=== PATIENT | female | born 1935 | race Caucasian/White ===

== ENCOUNTER 2020-10-20 15:25 | Emergency (ER) | payer OTHER ==
[~2020-10-20] VITALS: Ht 154.9 cm; Wt 81.7 kg
[2020-10-20] MEDS ORDERED: NORVASC5 MG PO (15:45)
[2020-10-20] MEDS ORDERED: COZAAR 25 MG TA25 M1 PO (15:45)
[2020-10-20] MEDS ORDERED: MAGNESIUM-VIT1 EAC1 PO (15:46)
[2020-10-20] MEDS ORDERED: TRIAMTERENE/HCT1 CA1 PO (15:48)
[2020-10-20] MEDS ORDERED: CLARITIN10 MG PO (15:49)
[2020-10-20] MEDS ORDERED: ASA81BEC PO (15:49)
[2020-10-20] MEDS ORDERED: MUCINEX DM ER1 EACH PO (15:50)
[2020-10-20] MEDS ORDERED: MULTI VITAMIN1 EACH PO (15:50)
[2020-10-20] MEDS ORDERED: VITAMIN B122500 MC1 PO (15:50)
[2020-10-20 17:10] VITALS: BP 166/70
== END 2020-10-20 17:12 | disposition home or self-care (01) ==
LOC: M.ERS 15:25
DX: M54.2 Cervicalgia (principal); M25.561 Pain in right knee; M25.511 Pain in right shoulder; Z88.2 Allergy status to sulfonamides; V89.2XXA Person injured in unspecified motor-vehicle accident, traffic, initial encounter; Y93.89 Activity, other specified; Y92.89 Other specified places as the place of occurrence of the external cause; Y99.8 Other external cause status

== ENCOUNTER 2021-06-06 19:57 | Emergency (ER) | payer OTHER ==
[~2021-06-06] VITALS: Ht 157.5 cm; Wt 82.1 kg
--- NOTE | ~2021-06-06 | EMS ---
[facility] [address] [place] [address] EMS Patient Care Report Name: BILL LOVE Room: [facility]#: [id number] Admission: 06/06/21 Attend Phys: Discharge: Date of : 37 Report #: [id number] THIS REPORT FOR: //name// Report Transmitted: 06/06/2021 20:23 EMS Care Summary [facility] [place] Incident [id number] @ 06/06/2021 19:12 Incident Location [address] [place] [address] Patient BILL LOVE Female, 85 Years 1935 Patient Address [address] [place] [id number] Patient History Hypertension (HTN),,Alzheimer's,Other and unspecified hearing loss, Patient Allergies , Patient Medications Losartan, Lexapro, Amlodipine, Memantine, Aricept, Chief Complaint Fainting/Syncope Disposition Transported No Lights/[place]inner Dispatch Reason Unconscious/Fainting Transported To [facility] Narrative 320 DISPATCHED EMERGENT TO [facility] FOR ALOC. 320 ARRIVED ON SCENE WITHOUT INCIDENT. UPON ARRIVING ON SCENE, PT WAS FOUND NEAR THE PHARMACY SITTING IN A CHAIR. PT'S FAMILY REPORTS THEY DID NOT WITNESS HER FALL BUT WHEN THEY APPROACHED PT SHE WAS MINIMALLY RESPONSIVE AND HER EYES WERE ROLLED BACK. [facility] [address] [place] [address] EMS Patient Care Report Name: BILL LOVE Room: [facility]#: [id number] Admission: 06/06/21 Attend Phys: Discharge: Date of : 37 Report #: [id number] FAMILY REPORTS PT WAS VERY CONFUSED WHEN SHE FIRST CAME AROUND. PT IS CURRENTLY ALERT AND ORIENTED X4 AND STATES SHE FELT DIZZY THEN "WENT DOWN." PT DENIES THIS EVER HAPPENING BEFORE. PT STATES SHE IS CURRENTLY FINE AND HAS NO COMPLAINTS. PT'S FAMILY REQUESTS PT GOES TO GET CHECKED OUT SO SHE AGREED AND THEY DECIDED [facility]. PT STOOD AND PIVOTED AND SAT ON THE COT. PT WAS SECURED VIA SEATBELTS AND SIDERAILS. PT'S FAMILY REPORTS PT SOMETIMES HAS SHORT TERM MEMORY LOSS THAT IS NORMAL DUE TO HER DEMENTIA. PT WAS WHEELED TO THE AMBULANCE AND LOADED WITHOUT INCIDENT. ONCE IN THE AMBULANCE, TREATMENTS AND INTERVENTIONS WERE EXECUTED. PT STATED HER NECK WAS STARTING TO HURT. PT STATED IT HURT AT THE BASE OF HER HEAD AND RIGHT ABOVE HER SHOULDERS. PT STATED HER UPPER BACK WAS ALSO HURTING AT THE TOPS OF HER SHOULDERS. PT THEN REPORTED HER HEAD NOW HURTING IN THE BACK. NO TRAUMA FOUND TO HER HEAD. TRANSPORT BEGAN AT THIS TIME. WHILE ENROUTE, PT STATED HER RIGHT KNEE WAS ALSO HURTING. NO OBVIOUS TRAUMAS WERE FOUND. PT REMAINS ORIENTED WITH A GCS OF 15. PT'S VITALS WERE MONITORED ENROUTE TO THE HOSPITAL AND REMAINED STABLE. UPON ARRIVING AT THE HOSPITAL, PT STATED SHE WAS UNABLE TO SIGN THE TABLET DUE TO THE IV PLACEMENT. PT STATED SHE WAS UNABLE TO LIFT HER ARM DUE TO IT. EMS ATTEMPTED TO EXPLAIN THAT IT WAS A CATHETER IN HER ARM AND SHE SHOULDN'T HAVE ISSUES LIFTING HER ARM BUT SHE STILL SAID SHE COULDN'T. PT WAS WHEELED INSIDE TO ER 18. PT WAS LIFTED FROM THE COT TO THE BED VIA DRAW SHEET. PT REPORT WAS GIVEN TO RN WHO SIGNED ACCEPTING PT. TRANSFER OF CARE OFFICIAL AT THIS TIME. Initial Vitals @19:20Pain: 010, @19:49Pain: 11/29, @19:35SpO2: 98, @19:35SpO2: 98, @19:40SpO2: 98, @19:45SpO2: 98, @19:47SpO2: 98, @19:50SpO2: 98, @19:34 @19:35P: 59,R: 16,BP: 156/76,Revised Trauma: 8, @19:47P: 62,R: 16,BP: 172/79,Revised Trauma: 8, @19:52P: 65,R: 16,BP: 158/106,Revised Trauma: 8, @19:35GCS: 15, @19:47GCS: 15, @19:52GCS: 15, @19:39Glucose: 123, Assessments @19:20MENTAL:SKIN:HEENT:LUNG SOUNDS:ABDOMEN:PELVIS//GI:EXTREMITIES:PULSE:NEURO: Impression Syncope / [place] [address] EMS Patient Care Report Name: SABINABILL ORTIZ [facility] [id number] Admission: 06/06/21 Attend Phys: Discharge: Date of : 37 Report #: [id number] Procedures @19:38 IV Therapy - cc () Site: Antecubital-Left Response: UnchangedSucceeded @19:40 Cervical collar Response: UnchangedSucceeded @19:34 12-Lead ECG Response: UnchangedSucceeded Timeline 19:10,Call Received 19:12,Dispatch Notified 19:12,Psap Call 19:12,Dispatched 19:12,En Route 19:20,On Scene 19:20,At Patient 19:20,BP: / M,PULSE: ,RR: R,SPO2: Ox,ETCO2: ,BG: ,PAIN: 0,GCS: , 19:34,12-Lead ECG,Response: UnchangedSucceeded, 19:34,BP: / M,PULSE: ,RR: R,SPO2: Ox,ETCO2: ,BG: ,PAIN: ,GCS: , 19:35,BP: / M,PULSE: ,RR: R,SPO2: 98 Ox,ETCO2: ,BG: ,PAIN: ,GCS: , 19:35,BP: / M,PULSE: ,RR: R,SPO2: 98 Ox,ETCO2: ,BG: ,PAIN: ,GCS: , 19:35,BP: 156/76 M,PULSE: 59,RR: 16 R,SPO2: Ox,ETCO2: ,BG: ,PAIN: ,GCS: , 19:35,BP: / M,PULSE: ,RR: R,SPO2: Ox,ETCO2: ,BG: ,PAIN: ,GCS: 15, 19:38,IV Therapy - cc Site: Antecubital-Left,Response: UnchangedSucceeded, 19:39,BP: / M,PULSE: ,RR: R,SPO2: Ox,ETCO2: ,B,PAIN: ,GCS: , 19:40,Cervical collar,Response: UnchangedSucceeded, 19:40,BP: / M,PULSE: ,RR: R,SPO2: 98 Ox,ETCO2: ,BG: ,PAIN: ,GCS: , 19:43,Depart Scene 19:45,BP: / M,PULSE: ,RR: R,SPO2: 98 Ox,ETCO2: ,BG: ,PAIN: ,GCS: , 19:47,BP: / M,PULSE: ,RR: R,SPO2: 98 Ox,ETCO2: ,BG: ,PAIN: ,GCS: , 19:47,BP: 172/79 M,PULSE: 62,RR: 16 R,SPO2: Ox,ETCO2: ,BG: ,PAIN: ,GCS: , 19:47,BP: / M,PULSE: ,RR: R,SPO2: Ox,ETCO2: ,BG: ,PAIN: ,GCS: 15, 19:49,BP: / M,PULSE: ,RR: R,SPO2: Ox,ETCO2: ,BG: ,PAIN: 5,GCS: , 19:50,BP: / M,PULSE: ,RR: R,SPO2: 98 Ox,ETCO2: ,BG: ,PAIN: ,GCS: , 19:52,BP: 158/106 M,PULSE: 65,RR: 16 R,SPO2: Ox,ETCO2: ,BG: ,PAIN: ,GCS: , 19:52,BP: / M,PULSE: ,RR: R,SPO2: Ox,ETCO2: ,BG: ,PAIN: ,GCS: 15, 19:53,At Destination 20:09,Call Closed Disclaimer v1.1 Copyright 2020 [employer] This EMS Care Summary contains data elements from the applicable legal record (which may be displayed differently). It is designed to provide pertinent information for the following purposes: continuity of care, clinical quality, and state data reporting. The complete legal record is available to ED staff and administrators of the receiving hospital in [employer] Patient Tracker. All data is provided "as is."
[~2021-06-06 19:57] MED LIST: ASA81BEC PO; CLARITIN10 MG PO; COZAAR 25 MG TA25 M1 PO; MAGNESIUM-VIT1 EAC1 PO; MUCINEX DM ER1 EACH PO; MULTI VITAMIN1 EACH PO; NORVASC5 MG PO; TRIAMTERENE/HCT1 CA1 PO; VITAMIN B122500 MC1 PO
[2021-06-06] MEDS ORDERED: OMEPRAZOLE40 MG (20:18)
[2021-06-06] MEDS ORDERED: SINGULAIR 10 MG10 MG (20:18)
[2021-06-06] MEDS ORDERED: ARICEPT10 M1 (20:19)
[2021-06-06] MEDS ORDERED: NAMENDA 10 MG T10 MG (20:19)
[2021-06-06] MEDS ORDERED: MAGNESIUM (20:20)
[2021-06-06] MEDS ORDERED: LEXAPRO5 MG (20:20)
[2021-06-06 20:33] LABS: ABSOLUTE LYMPHOCYTES 0.8 thou/uL (0.8-5.3); ABSOLUTE MONOCYTES 0.3 thou/uL (0.0-1.2); ABSOLUTE NEUTROPHILS 2.9 thou/uL (1.6-8.1); BASOPHILS 0.9 %; EOSINOPHILS 0.5 %; HEMATOCRIT 43.3 % (37.0-47.0); LYMPHOCYTES 20.3 %; MCH 26.2 pg (26.0-34.0); MCHC 32.2 g/dL (28.0-37.0); MCV 81.4 fL (80.0-100.0); NUCLEATED RBCS 0 /100WBC; PLATELET COUNT* 211 thou/uL (150-400); POLYS 70.3 %; RBC 5.32 mil/uL (4.20-5.00); RDW-CV 14.3 % (10.5-14.5); WBC 4.1 thou/uL (4.0-11.0)
[2021-06-06 20:40] LABS: CALCIUM 9.4 mg/dL (8.5-10.1); CREATININE 1.1 mg/dL (0.6-1.3); POTASSIUM 3.8 mmol/L (3.5-5.1)
[2021-06-06 20:45] LABS: ALBUMIN 3.9 g/dL (3.4-5.0); TOTAL BILIRUBIN 0.5 mg/dL (<0.1-1.0); TOTAL PROTEIN 7.2 g/dL (6.4-8.2)
[2021-06-06 22:47] LABS: URINE BILIRUBIN NEGATIVE (Negative); URINE BLOOD NEGATIVE (Negative); URINE CLARITY CLEAR; URINE COLOR YELLOW; URINE GLUCOSE-RANDOM NEGATIVE (Negative); URINE KETONES 2+ (Negative); URINE LEUKOCYTES-REFLEX TRACE (Negative); URINE NITRITE-REFLEX NEGATIVE (Negative); URINE PROTEIN NEGATIVE (Negative); URINE SPECIFIC GRAVITY >= 1.030 (1.005-1.030); URINE UROBILINOGEN 0.2 E.U./dl (0.2-1.0)
[2021-06-06 22:55] LABS: BACTERIA-REFLEX 1-9 Few /HPF (None Seen); CRYSTALS None Seen /LPF (None Seen); HYALINE CASTS 0-3 Few /LPF (None Seen); MUCUS 4-6 Moderate strn/LPF (None Seen); SQUAMOUS >10 Many /LPF (0-3); URINE RBC None Seen /HPF (0-2); URINE WBC-REFLEX 0-5 Rare /HPF (0-5)
[2021-06-06 23:00] VITALS: BP 158/72
--- NOTE | 2021-06-07 08:54 | EKG ---
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
== END 2021-06-06 23:00 | disposition home or self-care (01) ==
LOC: M.ERS 19:57
PROVIDERS: Personal Emergency Response Attendant
DX: R55 Syncope and collapse (principal); I10 Essential (primary) hypertension; J45.909 Unspecified asthma, uncomplicated; F32.9 Major depressive disorder, single episode, unspecified; Z79.899 Other long term (current) drug therapy; Z88.2 Allergy status to sulfonamides

== ENCOUNTER → 2021-08-11 | Outpatient (CLI) | payer OTHER ==
[~2021-08-11] MED LIST changes: +ARICEPT10 M1; +LEXAPRO5 MG; +MAGNESIUM; +NAMENDA 10 MG T10 MG; +OMEPRAZOLE40 MG; +SINGULAIR 10 MG10 MG
== END ==
LOC: M.ULTRA 13:21
PROVIDERS: ATTEND Family Medicine
DX: R55 Syncope and collapse (principal); R41.3 Other amnesia; R25.1 Tremor, unspecified; G30.1 Alzheimer's disease with late onset

== ENCOUNTER → 2021-08-19 | Outpatient (CLI) | payer OTHER | LOC: M.MRI 08:24 | PROVIDERS: ATTEND Family Medicine | DX: R90.82 White matter disease, unspecified (principal); G30.1 Alzheimer's disease with late onset; R25.1 Tremor, unspecified; R41.3 Other amnesia ==